=== PATIENT | female | born 1985 | race Caucasian/White ===

== ENCOUNTER 2018-05-06 10:22 | Day surgery (SDC) | payer MEDICAID, SELFPAY ==
[2018-05-06] VITALS (9 sets, daily range): BP systolic 84–119; BP diastolic 46–72; PULSE 54–67; RESP 14–16; TEMP 36.1–37.2; O2SAT 97–100; BMI 21.0
[2018-05-06 10:49] LABS: Internal QC Validated? YES +Cl - CLEAR BKGD; Pregnancy, Urine Negative Negative
[2018-05-06] MEDS: Oxymetazoline 0.05% 1 SPRAY SPRAY.BTL 15 SPRAY (12:27)
--- NOTE | 2018-05-06 12:29 | PCM.DC ---
You will use the following diet at home:: No restrictions Discharge Activity: Return to Normal Activity, May not drive while taking narcotic pain medications. Call your doctor if your incision/area has: Sudden Increased Bleeding Additional Dressing/Incision Instructions:: sleep with head of bed elevated. mupirocin ointment to the nasal incision and both nostrils twice daily. nasal saline spray to both nostrils 5 times per day. do not get the bridge of your nose wet until the morning of your follow up appointment - that day get it very wet in the shower so the splint comes off easily in the office. Allergies/Adverse Reactions: Allergies venom-honey bee [bee venom (honey bee)] Allergy (Verified 04/29/18 10:00) Anaphylaxis Medications to take at Discharge NK 04/29/18 Primary Care Physician: Moses Garcia DO [Primary Care Provider] - Test Results: Test results from this visit will be discussed in further detail at your follow-up appointment, if applicable. Please Follow Up With: Brennen Awad MD When: 1 week
--- NOTE | 2018-05-06 12:32 | DCINST_ITS ---
You will use the following diet at home:: No restrictions Discharge Activity: Return to Normal Activity, May not drive while taking narco tic pain medications. Call your doctor if your incision/area has: Sudden Increased Bleeding Additional Dressing/Incision Instructions:: sleep with head of bed elevated. mupirocin ointment to the nasal incision and both nostrils twice daily. nasal saline spray to both nostrils 5 times per day. do not get the bridge of your nose wet until the morning of your follow up appointment - that day get it very wet in the shower so the splint comes off easily in the office. Allergies/Adverse Reactions: Allergies venom-honey bee [bee venom (honey bee)] Allergy (Verified 04/29/18 10:00) Anaphylaxis Medications to take at Discharge NK 04/29/18 Primary Care Physician: Moses Garcia DO [Primary Care Provider] - Test Results: Test results from this visit will be discussed in further detail at your follow- up appointment, if applicable. Please Follow Up With: Brennen Awad MD When: 1 week
[2018-05-06] MEDS: Mupirocin Ointment 22gm Tube 1 APPLIC (13:00)
--- NOTE | 2018-05-06 15:22 | PCM.OPRPT ---
Problem List (1) Nasal congestion Status: Chronic (2) Nasal septal deviation Status: Chronic (3) Nasal valve collapse Status: Chronic (4) Nasal turbinate hypertrophy Status: Chronic Report of Operation Date of Procedure: 05/06/18 Pre-Operative Diagnosis: 1. nasal congestion. 2. nasal septal deviation. 3. inferior turbinate hypertrophy, right and left. 4. nasal valve collapse, right and left Post-Operative Diagnosis: 1. nasal congestion. 2. nasal septal deviation. 3. inferior turbinate hypertrophy, right and left. 4. nasal valve collapse, right and left Surgery/Procedure Performed:: 1. open septorhinoplasty with anterior septal reconstruction. 2. correction internal nasal valve collapse, right and left. 3. submucous resection inferior turbinate hypertrophy Type of Anesthesia:: General Description of Procedure: on the day of the procedure, after appropriate informed consent was obtained, the patient was brought to the operating room and placed in supine position on the operating table. he was placed under general endotracheal anesthesia by the anesthesiologist. the endotracheal tube was secured, the eyes were taped. the table was rotated 90 degrees toward the surgeon. the nose was injected with lidocaine/epinephrine. the face was prepped and draped in sterile fashion. an inverted V columellar incision was made with a the [place] blade. this traversed into right and left marginal incisions with an iris scissor and three point retraction. the lower lateral cartilages were skeletonized. the scroll region was skeletonized as well with an iris scizzor as were the right and left upper lateral cartilages. the anterior septal angle was found by lateralizing the lower lateral cartilages. a submucoperichondrial plane was developed on the right then the left with a corona elevator. this was taken posteriorly to the bony/cartilaginous junction and inferiorly to the maxillary crest. the right and left upper lateral cartilages were disarticulated from the septum using a #15 blade. a 1cm strut of septal cartilage was preserved off of the keystone area and the remainder of the septum was removed with a corona elevator. of note, the septum was incredibly fragmented and fractured. a jossy-septum was re-fashioned from the septal cartilage this was saved for future use. the head of the right and left inferior turbinates were injected with lidocaine/epinephrine. the head of the left inferior turbinate was incised with a #15 blade, dissected submucosally with a corona elevator, reduced using suction electrocautery and outfractured using a Boies elevator. the head of the right inferior turbinate was incised with a #15 blade, dissected submucosally with a corona elevator, reduced using suction electrocautery and outfractured using a Boies elevator. the cartilage and were placed as an internal rv [employer] and service director graft on the left between the left upper lateral cartilage and nasal septum; this was sutured into place using 4-0 PDS. it was also anchored to the periosteum of the maxillary crest with 4-0 PDS. an additional 1cm by 2mm internal rv parts and service director graft was placed on the patient's right side and secured with 4-0 PDS. Multiple quilting sutures with 4-0 chromic were used to reapproximate the septum, several incorporating the anterior septal reconstruction. the latera trocar was loaded in the usual fashion. using the pre-marked landmarks as a guide, the trocar was inserted in the right nasal vestibule and deep to the skin and soft tissue envelope. the implant was deployed fully. the latera trocar was loaded in the usual fashion. using the pre-marked landmarks as a guide, the trocar was inserted in the left nasal vestibule and deep to the skin and soft tissue envelope. the implant was deployed fully. the inverted V columellar incision was closed with a 7-0 vicryl. lopez splints were sutured into place and a dorsal nasal splint was placed. the patient was awoken from anesthesia and transferred to the PACU in stable condition.
--- NOTE | 2018-05-06 15:26 | OP.PCM_ITS ---
Problem List (1) Nasal congestion Status: Chronic (2) Nasal septal deviation Status: Chronic (3) Nasal valve collapse Status: Chronic (4) Nasal turbinate hypertrophy Status: Chronic Report of Operation Date of Procedure: 05/06/18 Pre-Operative Diagnosis: 1. nasal congestion. 2. nasal septal deviation. 3. inferior turbinate hypertrophy, right and left. 4. nasal valve collapse, right and left Post-Operative Diagnosis: 1. nasal congestion. 2. nasal septal deviation. 3. inferior turbinate hypertrophy, right and left. 4. nasal valve collapse, right and left Surgery/Procedure Performed:: 1. open septorhinoplasty with anterior septal reconstruction. 2. correction internal nasal valve collapse, right and left. 3. submucous resection inferior turbinate hypertrophy Type of Anesthesia:: General Description of Procedure: on the day of the procedure, after appropriate informed consent was obtained, the patient was brought to the operating room and placed in supine position on the operating table. he was placed under general endotracheal anesthesia by the anesthesiologist. the endotracheal tube was secured, the eyes were taped. the table was rotated 90 degrees toward the surgeon. the nose was injected with lidocaine/epinephrine. the face was prepped and draped in sterile fashion. an inverted V columellar incision was made with a [place] blade. this traversed into right and left marginal incisions with an iris scissor and three point retraction. the lower lateral cartilages were skeletonized. the scroll region was skeletonized as well with an iris scizzor as were the right and left upper lateral cartilages. the anterior septal angle was found by lateralizing the lower lateral cartilages. a submucoperichondrial plane was developed on the right then the left with a corona elevator. this was taken posteriorly to the bony/cartilaginous junction and inferiorly to the maxillary crest. the right and left upper lateral cartilages were disarticulated from the septum using a #15 blade. a 1cm strut of septal cartilage was preserved off of the keystone area and the remainder of the septum was removed with a corona elevator. of note, the septum was incredibly fragmented and fractured. a jossy-septum was re-fashioned from the septal cartilage this was saved for future use. the head of the right and left inferior turbinates were injected with lidocaine/epinephrine. the head of the left inferior turbinate was incised with a #15 blade, dissected submucosally with a corona elevator, reduced using suction electrocautery and outfractured using a Boies elevator. the head of the right inferior turbinate was incised with a #15 blade, dissected submucosally with a corona elevator, reduced using suction electrocautery and outfractured using a Boies elevator. the cartilage and were placed as an internal churn operator margarine graft on the left between the left upper lateral cartilage and nasal septum; this was sutured into place using 4-0 PDS. it was also anchored to the periosteum of the maxillary crest with 4-0 PDS. an additional 1cm by 2mm internal churn operator margarine graft was placed on the patient's right side and secured with 4-0 PDS. Multiple quilting sutures with 4-0 chromic were used to reapproximate the septum, several incorporating the anterior septal reconstruction. the latera trocar was loaded in the usual fashion. using the pre-marked landmarks as a guide, the trocar was inserted in the right nasal vestibule and deep to the skin and soft tissue envelope. the implant was deployed fully. the latera trocar was loaded in the usual fashion. using the pre-marked landmarks as a guide, the trocar was inserted in the left nasal vestibule and deep to the skin and soft tissue envelope. the implant was deployed fully. the inverted V columellar incision was closed with a 7-0 vicryl. lopez splints were sutured into place and a dorsal nasal splint was placed. the patient was awoken from anesthesia and transferred to the PACU in stable condition.
== END 2018-05-06 17:30 | disposition home or self-care (01) ==
LOC: SDC 10:23 → AC 10:26
PROVIDERS: Anesthesiology; Family Provider Family Medicine; PCP Family Medicine; Referring Provider Otolaryngology; Visit Provider Otolaryngology
PROC: (CPT 20912; principal; 2018-05-06 11:40)
DX: J34.2 Deviated nasal septum (principal); J34.3 Hypertrophy of nasal turbinates; M95.0 Acquired deformity of nose; R09.81 Nasal congestion; F17.210 Nicotine dependence, cigarettes, uncomplicated
CPT/HCPCS: 00160; 20912; 30140; 30420; 81025; J7120; J2405

== ENCOUNTER → 2018-10-07 11:23 | Outpatient (CLI) | payer OTHER, MEDICAID, SELFPAY ==
[2018-05-06 10:45] VITALS: BMI 21.0
[2018-10-07 14:50] LABS: ALB/GLOB Ratio 1.3 RATIO (0.9-2.4); AST(SGOT) 16 U/L (15-37); Alanine Aminotransfer ALT/SGPT 22 U/L (13-56); Alkaline Phosphatase 59 U/L (45-117); Amylase 89 U/L (25-115); Anion Gap 4 (5-15); BUN 13 mg/dL (7-18); CRP < 2.90 mg/L (0.0-3.0); Calcium,Total 8.1 mg/dL (8.5-10.1); Chloride 109 mmol/L (98-107); Creatinine, Serum 0.69 mg/dL (0.55-1.02); EST Glomerular Filtration Rate 106 mL/min (>60); Est Glom Filt Rate - Afr Amer 129 mL/min (>60); Glucose 78 mg/dL (74-106); Lipase 70 U/L (73-393); Potassium 3.6 mmol/L (3.5-5.1); Sodium Level 140 mmol/L (136-145)
[2018-10-08 20:06] LABS: Endomysial Antibody IgA Negative (Negative)
[2018-10-09 14:15] LABS: Immunoglobulin A 225 mg/dL (87-352); t-Transglutaminase IgA <2 U/mL (0-3)
== END ==
PROVIDERS: Family Provider Family Medicine; PCP Family Medicine; Visit Provider Family Medicine
DX: K86.1 Other chronic pancreatitis (principal); R10.9 Unspecified abdominal pain; R19.7 Diarrhea, unspecified
CPT/HCPCS: 36415; 80053; 82150; 82784; 83516; 83690; 86140; 86255

== ENCOUNTER → 2019-12-22 | Outpatient (CLI) | payer OTHER, SELFPAY ==
[2019-12-22 12:20] LABS: Erythrocyte Sedimentation Rate < 1 mm/hr (0-20)
[2019-12-22 13:16] LABS: CRP < 2.90 mg/L (0.0-3.0); T4 Free Direct 0.91 ng/dL (0.76-1.46); Thyroid Stim Hormone (TSH) 2.81 uIU/mL (0.358-3.74)
[2019-12-25 03:07] LABS: Almond <0.10 kU/L (Class 0); Alternaria tenuis <0.10 kU/L (Class 0); Ash, White <0.10 kU/L (Class 0); Aspergillus fumigatus <0.10 kU/L (Class 0); Banana <0.10 kU/L (Class 0); Barley, Whole Grain <0.10 kU/L (Class 0); Beef <0.10 kU/L (Class 0); Bermuda Grass <0.10 kU/L (Class 0); Birch <0.10 kU/L (Class 0); Black Walnut <0.10 kU/L (Class 0); Carrot <0.10 kU/L (Class 0); Casein <0.10 kU/L (Class 0); Cashew <0.10 kU/L (Class 0); Cat Hair / Dander,Stand <0.10 kU/L (Class 0); Cedar, Mountain <0.10 kU/L (Class 0); Celery <0.10 kU/L (Class 0); Cheddar Cheese <0.10 kU/L (Class 0); Chicken <0.10 kU/L (Class 0); Chocolate <0.10 kU/L (Class 0); Cladosporium herbarum <0.10 kU/L (Class 0); Clam <0.10 kU/L (Class 0); Cockroach, American <0.10 kU/L (Class 0); Codfish <0.10 kU/L (Class 0); Corn <0.10 kU/L (Class 0); Cottonwood <0.10 kU/L (Class 0); Crab <0.10 kU/L (Class 0); D farinae Mite <0.10 kU/L (Class 0); D pteronyssinus <0.10 kU/L (Class 0); Dog Epithelia <0.10 kU/L (Class 0); Egg, White <0.10 kU/L (Class 0); Egg, Whole <0.10 kU/L (Class 0); Egg, Yolk <0.10 kU/L (Class 0); Elm, American White <0.10 kU/L (Class 0); Garlic <0.10 kU/L (Class 0); Gluten <0.10 kU/L (Class 0); Hazelnut/Filbert <0.10 kU/L (Class 0); Immunoglobulin E 46 IU/mL (6-495); Lettuce <0.10 kU/L (Class 0); Lobster <0.10 kU/L (Class 0); Maple/Box Elder <0.10 kU/L (Class 0); Milk (Cow) <0.10 kU/L (Class 0); Mulberry, White <0.10 kU/L (Class 0); Oak, White <0.10 kU/L (Class 0); Oat <0.10 kU/L (Class 0); Onion <0.10 kU/L (Class 0); Orange <0.10 kU/L (Class 0); Pea <0.10 kU/L (Class 0); Peach <0.10 kU/L (Class 0); Pecan <0.10 kU/L (Class 0); Penicillium Notatum <0.10 kU/L (Class 0); Pigweed, Rough <0.10 kU/L (Class 0); Pork <0.10 kU/L (Class 0); Potato, White <0.10 kU/L (Class 0); Ragweed, Short/Common <0.10 kU/L (Class 0); Rice <0.10 kU/L (Class 0); Russian Thistle <0.10 kU/L (Class 0); Rye <0.10 kU/L (Class 0); Salmon <0.10 kU/L (Class 0); Sheep Sorrel <0.10 kU/L (Class 0); Shrimp <0.10 kU/L (Class 0); Soybean <0.10 kU/L (Class 0); Strawberry <0.10 kU/L (Class 0); Sycamore, American <0.10 kU/L (Class 0); Timothy Grass <0.10 kU/L (Class 0); Tomato <0.10 kU/L (Class 0); Tuna <0.10 kU/L (Class 0); Walnut, (Food) <0.10 kU/L (Class 0); Wheat <0.10 kU/L (Class 0); Yeast <0.10 kU/L (Class 0)
[2019-12-25 12:42] LABS: Apple <0.10 kU/L (Class 0); Peanut <0.10 kU/L (Class 0)
[2019-12-25 12:43] LABS: Lactalbumin, Alpha <0.10 kU/L (Class 0); Mouse Urine <0.10 kU/L (Class 0); Turkey <0.10 kU/L (Class 0)
== END | disposition home or self-care (01) ==
LOC: BFHLAB 10:01
PROVIDERS: PCP Family Medicine; Visit Provider Family Medicine
DX: L29.9 Pruritus, unspecified (principal)
CPT/HCPCS: 36415; 82785; 84439; 84443; 85652; 86003; 86140